=== PATIENT | female | born 1985 | race Caucasian/White ===

== ENCOUNTER 2016-08-15 17:59 | Emergency (ER) | payer OTHER ==
[2016-08-15 19:18] LABS: HEMOGLOBIN 14.2 gm/dl (12.3-15.3); RED BLOOD COUNT 4.53 M/UL (4.00-5.10); WHITE BLOOD COUNT 6.8 K/UL (4.5-11.0)
[2016-08-15 19:37] LABS: BUN/CREATININE RATIO 12 (0-10)
== END 2016-08-15 23:15 | disposition home or self-care (01) ==
LOC: ER1 17:59
PROVIDERS: Student in an Organized Health Care Education/Training Program
DX: N93.9 Abnormal uterine and vaginal bleeding, unspecified (principal); R10.84 Generalized abdominal pain; Z90.49 Acquired absence of other specified parts of digestive tract
CPT/HCPCS: 36415; 80053; 81001; 82150; 83690; 84703; 85025; 96374; 96375; 96376; 99284; J2270; J2405; J2550; J7050